=== PATIENT | male | born 1955 | race Hispanic/Latino ===

== ENCOUNTER → 2025-02-20 | Outpatient (CLI) | payer OTHER ==
[2025-02-20 10:15] LABS: ASPARTATE AMINOTRANSFERASE 15.0 U/L (10-37); CREATININE 1.0 mg/dL (0.5-1.3); GLOMERULAR FILTR. RATE CALC 82.0 mL/min (>90); GLUCOSE,RANDOM 291.0 mg/dL (70-105); SODIUM SERUM 137.0 mmol/L (136-145); TOTAL PROTEIN, SERUM 7.5 g/dL (6.0-8.3); UREA NITROGEN, BLOOD 27.0 mg/dL (7-18)
== END | disposition home or self-care (01) ==
LOC: LAB 09:09
PROVIDERS: ATTEND Internal Medicine
DX: R10.10 Upper abdominal pain, unspecified (principal)
CPT/HCPCS: 36415; 80053

== ENCOUNTER → 2025-02-28 | Outpatient (CLI) | payer OTHER ==
[~2025-02-28] MED LIST: IOHEXOL-350 75 ML VIAL IV ONE
--- NOTE | 2025-03-01 18:22 | HMCIMG ---
EXAM: CT Abdomen with and without IV Contrast CLINICAL HISTORY: Abnormal findings on diagnostic imaging of liver and biliary tract TECHNIQUE: Axial computed tomography images of the upper abdomen were obtained before and after intravenous contrast administration. Multiplanar reformatted images were reviewed. CONTRAST: With and without intravenous contrast. COMPARISON: None provided. FINDINGS: LUNG BASES: Visualised lung bases are clear. No pleural effusion or consolidation. LIVER: Liver is enlarged, measuring approximately 16 cm in craniocaudal dimension, consistent with hepatomegaly. Diffuse decreased attenuation relative to the spleen indicating fatty infiltration. No focal hepatic lesion or abnormal enhancement. GALLBLADDER AND BILE DUCTS: Gallbladder appears normal with thin wall. No gallstones or pericholecystic fluid. No intrahepatic or extrahepatic biliary dilatation. PANCREAS: Normal in size and attenuation. No ductal dilatation or peripancreatic inflammation. SPLEEN: Normal in size, contour, and attenuation. ADRENAL GLANDS: Normal in morphology without nodules or enlargement. KIDNEYS: Normal cortical enhancement bilaterally. No hydronephrosis, calculus, or focal lesion. VASCULATURE: Abdominal aorta and visualised branches are normal in calibre and enhancement. No aneurysm or dissection. BONES: Visualised osseous structures show no acute or aggressive lesion. IMPRESSION: * Hepatomegaly with diffuse fatty infiltration???consistent with hepatic steatosis. No focal hepatic lesions. * No acute intra-abdominal pathology. /[place]
== END | disposition home or self-care (01) ==
LOC: EDUNIT# 08:00 → RAH 08:15
PROVIDERS: ATTEND Internal Medicine
DX: R93.2 Abnormal findings on diagnostic imaging of liver and biliary tract (principal)
CPT/HCPCS: 74170; Q9967 ×2